=== PATIENT | female | born 1995 | race Caucasian/White ===

== ENCOUNTER 2016-11-09 15:47 | Emergency (ER) | payer BC, MEDICAID ==
[2016-11-09 19:12] VITALS: BP 144/77
--- NOTE | 2016-11-09 19:15 | UC ---
Throat Pain/Nasal Dago HPI - HPI Summary HPI Summary: SWOLLEN TONSILS SINCE YESTERDAY, SENT BY OB TO HAVE STREP TEST DONE; 32 WEEKS - History of Current Complaint Chief Complaint: UCRespiratory Stated Complaint: SORE THROAT Time Seen by Provider: 11/09/16 18:57 Hx Obtained From: Patient Hx Last Menstrual Period: Onset/Duration: Gradual Onset, Lasting Hours, Still Present Severity: Moderate Pain Intensity: 7 Pain Scale Used: 0-10 Numeric Associated Signs & Symptoms: Positive: Hoarseness - Epiglottits Risk Factors Epiglottis Risk Factors: Negative - Allergies/Home Medications Allergies/Adverse Reactions: Allergies Allergy/AdvReac Type Severity Reaction Status Date / Time Latex Allergy Rash Verified 06/08/16 20:31 Home Medications: Home Medications Vit W/ Docusate-Fe Fu [ 19] 11/09/16 [History] PMH/Surg Hx/FS Hx/Imm Hx Previously Healthy: Yes Endocrine History Of: Denies: Diabetes, Thyroid Disease Cardiovascular History Of: Denies: Cardiac Disorders, Hypertension Respiratory History Of: Denies: COPD, Asthma GI/ History Of: Denies: Ulcer - Surgical History Surgical History: Yes Surgery Procedure, Year, and Place: rt knee surgery 2011 - Family History Known Family History: Positive: Other - Negative for stomach disease Negative: Respiratory Disease - Social History Occupation: Employed Full-time Lives: With Family Alcohol Use: None Substance Use Type: None Smoking Status (MU): Never Smoked Tobacco Review of Systems Constitutional: Fatigue Skin: Negative Eyes: Negative ENT: Sore Throat Respiratory: Negative Cardiovascular: Negative Gastrointestinal: Negative Genitourinary: Negative Motor: Negative Neurovascular: Negative Musculoskeletal: Negative Neurological: Negative Psychological: Negative All Other Systems Reviewed And Are Negative: Yes Physical Exam Triage Information Reviewed: Yes Appearance: Well-Appearing, No Pain Distress, Well-Nourished Vital Signs: Initial Vital Signs Temp 98.4 F 11/09/16 17:07 Pulse 97 11/09/16 17:07 Resp 16 11/09/16 17:07 BP 121/71 11/09/16 17:07 Pulse Ox 98 11/09/16 17:07 Vital Signs Reviewed: Yes Eye Exam: Normal ENT: Positive: TMs normal, Tonsillar swelling Dental Exam: Normal Neck exam: Normal Neck: Positive: Supple, Nontender, No Lymphadenopathy Respiratory Exam: Normal Respiratory: Positive: Chest non-tender, Lungs clear, Normal breath sounds, No respiratory distress, No accessory muscle use Cardiovascular Exam: Normal Cardiovascular: Positive: RRR, No Murmur, Pulses Normal Abdominal Exam: Normal Musculoskeletal Exam: Normal Musculoskeletal: Positive: Strength Intact, ROM Intact Neurological Exam: Normal Psychological Exam: Normal Psychological: Positive: Normal Response To Family Skin Exam: Normal Throat Pain/Nasal Course/Dx - Differential Dx/Diagnosis Differential Diagnosis/HQI/PQRI: Otitis Media, Sinusitis, Tonsillitis, URI Provider Diagnoses: TONSILLITIS. THIRD TRIMESTER Discharge - Discharge Plan Condition: Stable Disposition: HOME Patient Education Materials: Tonsillitis (ED) Referrals: Sher Duffy MD [Primary Care Provider] -
== END 2016-11-09 19:05 | disposition home or self-care (01) ==
LOC: UCEAST 15:47
DX: O26.893 Other specified pregnancy related conditions, third trimester (principal); J03.90 Acute tonsillitis, unspecified; Z3A.32 32 weeks gestation of pregnancy; R03.0 Elevated blood-pressure reading, without diagnosis of hypertension
CPT/HCPCS: 87651; 99212; G0463

== ENCOUNTER 2016-11-22 03:57 | Inpatient (IN) | payer BC, MEDICAID ==
[2016-11-22 04:46] LABS: ROM Internal QC QC Line Present
[2016-11-22 06:24] LABS: Hematocrit 32 % (35-47); Mean Corpuscular HGB Conc 34 g/dl (31-36); Mean Corpuscular Hemoglobin 29 pg (27-31); Mean Corpuscular Volume 83 fL (80-97); Mean Platelet Volume 10 um3 (7.4-10.4); Red Blood Count 3.85 10^6/ul (4.0-5.4); Red Cell Distribution Width 14 % (10.5-15); White Blood Count 9.3 10^3/ul (3.5-10.8)
[2016-11-22 06:37] LABS: Uric Acid 10.2 mg/dL (2.3-6.6)
[2016-11-22 07:03] LABS: Albumin 2.8 g/dL (3.2-5.2); BUN/Creatinine Ratio 13.3 (8-20); Calcium 8.5 mg/dL (8.6-10.3); EGFR African American 110.6 (>60); Globulin 3.1 g/dL (2-4); Total Bilirubin 0.3 mg/dL (0.2-1.0); Total Protein 5.9 g/dL (6.4-8.9)
[2016-11-22] MEDS ORDERED: fentaNYL* 50 MCG/ML 2 ML VIAL (100 MCG VIAL) ONE (08:56)
[2016-11-22] MEDS ORDERED: Famotidine TAB* 20 MG PO PRN (09:28)
[2016-11-22] MEDS ORDERED: Phenylephrine IV* 40 MCG/ML 10 ML SYRINGE IV PUSH PRN (09:28)
[2016-11-22] MEDS ORDERED: Sodium Citrate/Citric Acid* 15 ML UDC PO PRN (09:28)
[2016-11-22] MEDS ORDERED: Oxytocin in LR* 20 UNITS/1,000 ML BAG IVPB ONE (09:58)
[2016-11-22] MEDS ORDERED: OBEPIDURAL* 250 ML EPIDURAL SCH (10:00)
[2016-11-22] MEDS ORDERED: Glycerin ADULT SUPP PR PRN (11:07)
[2016-11-22] MEDS ORDERED: Witch Hazel PAD* JAR TOPICAL PRN (11:07)
[2016-11-22] MEDS ORDERED: Dibucaine 1% 28.35 GM TUBE PR PRN (11:07)
[2016-11-22] MEDS ORDERED: Acetaminophen TAB* 325 MG PO PRN (11:07)
[2016-11-22] MEDS ORDERED: oxyCODONE/Acetamin 5/325 MG* TAB PO PRN (11:07)
[2016-11-22] MEDS ORDERED: Oxytocin in LR* 20 UNITS/1,000 ML BAG IVPB SCH (12:00)
[2016-11-22] MEDS: Docusate CAP* 100 MG PO SCH ×2 (13:49→20:51)
[2016-11-22] MEDS: Ibuprofen TAB* 600 MG PO PRN (17:52)
[2016-11-23 06:29] LABS: Hematocrit 27 % (35-47); Hemoglobin 9.2 g/dl (12.0-16.0); Mean Corpuscular HGB Conc 34 g/dl (31-36); Mean Corpuscular Hemoglobin 28 pg (27-31); Mean Corpuscular Volume 84 fL (80-97); Mean Platelet Volume 9 um3 (7.4-10.4); Red Blood Count 3.26 10^6/ul (4.0-5.4); Red Cell Distribution Width 14 % (10.5-15); White Blood Count 9.4 10^3/ul (3.5-10.8)
[2016-11-23] MEDS: Docusate CAP* 100 MG PO SCH ×3 (07:52→20:31)
[2016-11-23] MEDS: Ferrous Gluconate TAB* 324 MG TAB PO SCH ×2 (07:52→20:31)
[2016-11-23] MEDS: Ibuprofen TAB* 600 MG PO PRN ×3 (07:52→20:31)
[2016-11-23] MEDS ORDERED: RHO D Immune Globulin (HUMAN)* 300 MCG = 1,500 I.U. INJ IM ONE (09:00)
[2016-11-24] MEDS: Simethicone CHEW TAB* 80 MG PO SCH (06:23)
--- NOTE | 2016-11-24 08:07 | PTEDU ---
Patient Name: INDIGO GALEAS INDIGO GALEAS selected video: Never Ever Shake a Baby to view on 11/24/2016 at 8:06:30 AM from [id number]
--- NOTE | 2016-11-24 08:20 | PTEDU ---
Patient Name: INDIGO GALEAS INDIGO GALEAS selected video: BBOB: Nurturing Your Gorgeous \T\Growing Baby by to v iew on 11/24/2016 at 8:19:36 AM from [id number]
[2016-11-24 08:24] VITALS: BP 146/97
[2016-11-24] MEDS: Docusate CAP* 100 MG PO SCH (08:39)
[2016-11-24] MEDS: Ferrous Gluconate TAB* 324 MG TAB PO SCH (08:39)
[2016-11-24] MEDS: Ibuprofen TAB* 600 MG PO PRN (08:39)
== END 2016-11-24 12:09 | disposition home or self-care (01) | DRG 560 ==
LOC: MCHOBOUT 03:57 → MCHOB 05:18
PROVIDERS: ADMIT Nurse Practitioner; ATTEND Midwife
PROC: 10E0XZZ Delivery of Products of Conception, External Approach (ICD-10-PCS; principal; 2016-11-22)
PROC: 0HQ9XZZ Repair Perineum Skin, External Approach (ICD-10-PCS; 2016-11-22)
DX: O14.04 Mild to moderate pre-eclampsia, complicating childbirth (principal); O71.4 Obstetric high vaginal laceration alone; O99.824 Streptococcus B carrier state complicating childbirth; Z3A.37 37 weeks gestation of pregnancy; Z37.0 Single live birth; Z91.040 Latex allergy status
CPT/HCPCS: 36415; 80053; 81002; 84112; 84550; 85025; 85461; 86850; 86900; 86901; A9270-GY; J2790; J3010

== ENCOUNTER 2017-10-14 22:33 | Emergency (ER) | payer BC ==
[2017-10-14] MEDS ORDERED: NS 0.9% 1000 ML* 1,000 ML IV ONE (23:14)
[2017-10-14] MEDS ORDERED: Ondansetron INJ* 2 MG/ML VIAL IV ONE (23:14)
[2017-10-14 23:33] LABS: ABS Basophils 0 10^3/ul (0-0.2); ABS Eosinophils 0 10^3/ul (0-0.6); ABS Lymphocytes 0.4 10^3/ul (1.0-4.8); ABS Monocytes 0.3 10^3/ul (0-0.8); ABS Neutrophils 9.5 10^3/ul (1.5-7.7); ABS Nucleated RBC 0 10^3/ul; Eosinophil % 0 % (0-6); Hematocrit 42 % (35-47); Hemoglobin 14.6 g/dl (12.0-16.0); Lymphocyte % 3.4 % (25-47); Mean Corpuscular HGB Conc 35 g/dl (31-36); Mean Corpuscular Hemoglobin 29 pg (27-31); Mean Corpuscular Volume 84 fL (80-97); Mean Platelet Volume 7 um3 (7.4-10.4); Nucleated Red Blood Cells % 0; Platelet Count 188 10^3/ul (150-450); Red Blood Count 5.05 10^6/ul (4.0-5.4); Red Cell Distribution Width 13 % (10.5-15); White Blood Count 10.2 10^3/ul (3.5-10.8)
[2017-10-14 23:48] LABS: EGFR Non-African American 80.7 (>60)
--- NOTE | 2017-10-15 00:33 | ED ---
Nausea/Vomiting/Diarrhea HPI - HPI Summary HPI Summary: 22 female presents to ED with complaints of nausea, vomiting and diarrhea over the past 12 hours.States she has not been able to keep anything down. Admits to diffuse abdominal pain intermittently. States she ate taco [employer] earlier prior to symptoms beginning. No other known sick contacts. Denies blood in stool/ vomit. Has not taken any medication. Denies concern. No urinary or genitalia symptoms. No fever/chills. No PMHx. - History of Current Complaint Chief Complaint: EDNauseaVomitDiarrh Stated Complaint: VOMITING Time Seen by Provider: 10/14/17 22:55 Hx Obtained From: Patient Onset/Duration: Sudden Onset, Lasting Hours, Still Present Severity Initially: Mild - "sometimes" Severity Currently: None Pain Intensity: 0 Pain Scale Used: 0-10 Numeric Location: Diffuse Character: Cramping Aggravating Factor(s): Nothing Alleviating Factor(s): Nothing Nausea/Vomiting Presence: Nauseated, Vomiting Vomiting Frequency: Every 15-60 minutes Nausea/Vomiting Duration: 0-12 hours Vomiting Characteristics: Bilious Diarrhea Presence: Yes Diarrhea Frequency: Every 15-60 minutes Diarrhea Duration: 0-12 hours Diarrhea Characteristics: Watery - Allergies/Home Medications Allergies/Adverse Reactions: Allergies Allergy/AdvReac Type Severity Reaction Status Date / Time MS Latex [Latex] Allergy Rash Verified 06/08/16 20:31 PMH/Surg Hx/FS Hx/Imm Hx Endocrine/Hematology History: Denies: Hx Diabetes, Hx Thyroid Disease Cardiovascular History: Denies: Hx Hypertension Respiratory History: Denies: Hx Asthma, Hx Chronic Obstructive Pulmonary Disease (COPD) GI History: Denies: Hx Ulcer Psychiatric History: Reports: Hx Anxiety - on effexor - Surgical History Surgery Procedure, Year, and Place: rt knee surgery 2011 - Immunization History Date of Tetanus Vaccine: UP TO DATE Date of Influenza Vaccine: NONE Immunizations Up to Date: Yes Infectious Disease History: No Infectious Disease History: Denies: Hx Clostridium Difficile, Hx Hepatitis, Hx Human Immunodeficiency Virus (HIV), Traveled Outside the [place] in Last 30 Days - Family History Known Family History: Positive: Other - Negative for stomach disease Negative: Respiratory Disease - Social History Alcohol Use: None Substance Use Type: Reports: None Smoking Status (MU): Never Smoked Tobacco Have You Smoked in the Last Year: No Review of Systems Constitutional: Negative Cardiovascular: Negative Respiratory: Negative Positive: Abdominal Pain - resolved was "intermittent/diffuse", Vomiting, Diarrhea, Nausea Genitourinary: Negative All Other Systems Reviewed And Are Negative: Yes Physical Exam Triage Information Reviewed: Yes Vital Signs On Initial Exam: Initial Vitals Temp Pulse Resp BP Pulse Ox 96.2 F 102 18 144/88 98 10/14/17 22:34 10/14/17 22:34 02 22:34 10/14/17 22:34 10/14/17 22:34 Vital Signs Reviewed: Yes Appearance: Positive: No Pain Distress, Well-Nourished, Ill-Appearing - appears nauseous, holding bag Skin: Positive: Warm, Skin Color Reflects Adequate Perfusion, Dry. Negative: Cold, Cyanosis @, Diaphoretic, Jaundiced, Pale, Erythema @ Head/Face: Positive: Normal Head/Face Inspection Eyes: Positive: Conjunctiva Clear ENT: Positive: Hearing grossly normal, Pharynx normal, TMs normal, Uvula midline - patent airway Neck: Positive: Supple, Nontender, No Lymphadenopathy Respiratory/Lung Sounds: Positive: Clear to Auscultation, Breath Sounds Present. Negative: Rales, Rhonchi, Wheezes Cardiovascular: Positive: Normal, RRR, Pulses are Symmetrical in both Upper and Lower Extremities. Negative: Murmur, Rub Abdomen Description: Positive: Nontender, No Organomegaly, Soft. Negative: Bruit, CVA Tenderness (R), CVA Tenderness (L), Distended, Guarding, McBurney's Point Tenderness Bowel Sounds: Positive: Present, Hyperactive Musculoskeletal: Positive: Normal, Strength/ROM Intact Neurological: Positive: Normal, Sensory/Motor Intact, Alert, Oriented to Person Place, Time Diagnostics - Vital Signs Vital Signs Temp Pulse Resp BP Pulse Ox 10/15/17 00:01 86 107/76 95 10/15/17 00:00 82 93 10/14/17 23:58 107 97 10/14/17 23:57 111/67 10/14/17 22:34 96.2 F 102 18 144/88 98 - Laboratory Lab Results: Lab Results 10/14/17 10/14/17 10/14/17 Range/Units 23:20 23:20 23:20 WBC 10.2 (3.5-10.8) 10^3/ul RBC 5.05 (4.0-5.4) 10^6/ul Hgb 14.6 (12.0-16.0) g/dl Hct 42 (35-47) % MCV 84 (80-97) fL MCH 29 (27-31) pg MCHC 35 (31-36) g/dl RDW 13 (10.5-15) % Plt Count 188 (150-450) 10^3/ul MPV 7 L (7.4-10.4) um3 Neut % (Auto) 93.1 H (38-83) % Lymph % (Auto) 3.4 L (25-47) % Fannin % (Auto) 3.3 (1-9) % Eos % (Auto) 0 (0-6) % Baso % (Auto) 0.2 (0-2) % Absolute Neuts (auto) 9.5 H (1.5-7.7) 10^3/ul Absolute Lymphs (auto) 0.4 L (1.0-4.8) 10^3/ul Absolute Monos (auto) 0.3 (0-0.8) 10^3/ul Absolute Eos (auto) 0 (0-0.6) 10^3/ul Absolute Basos (auto) 0 (0-0.2) 10^3/ul Absolute Nucleated RBC 0 10^3/ul Nucleated RBC % 0 Sodium 135 (133-145) mmol/L Potassium 4.2 (3.5-5.0) mmol/L Chloride 101 (101-111) mmol/L Carbon Dioxide 25 (22-32) mmol/L Anion Gap 9 (2-11) mmol/L BUN 14 (6-24) mg/dL Creatinine 0.87 (0.51-0.95) mg/dL Est GFR ( Amer) 103.8 (>60) Est GFR (Non-Af Amer) 80.7 (>60) BUN/Creatinine Ratio 16.1 (8-20) Glucose 119 H (70-100) mg/dL Lactic Acid 1.6 (0.5-2.0) mmol/L Calcium 9.7 (8.6-10.3) mg/dL Magnesium 1.6 L (1.9-2.7) mg/dL Total Bilirubin 0.50 (0.2-1.0) mg/dL AST 17 (13-39) U/L ALT 19 (7-52) U/L Alkaline Phosphatase 89 (34-104) U/L C-Reactive Protein 17.97 H (< 5.00) mg/L Total Protein 8.0 (6.4-8.9) g/dL Albumin 4.4 (3.2-5.2) g/dL Globulin 3.6 (2-4) g/dL Albumin/Globulin Ratio 1.2 (1-3) Lipase 13 (11.0-82.0) U/L Beta HCG, Quant < 0.60 mIU/mL Result Diagrams: 10/14/17 23:20 10/14/17 23:20 Lab Statement: Any lab studies that have been ordered have been reviewed, and results considered in the medical decision making process. Re-Evaluation - Re-Evaluation First Eval Re-Evaluation Time: 01:00 Change: Improved - feeling better, still has fluids, updated on labs and plan Second Eval Re-Evaluation Time: 01:35 Change: Improved - feeling better and ready to be dc Naus/Vom/Diarrhea Course/Dx - Course Course Of Treatment: appears to be suffering from gastroenteritis/food poisoning. labs obtained and normal. normal urinalysis. negative hcg. nslight elevation of CRP. no other concerns at this time. had relief after labs and zofran. will continue at home. increse fluids, rest, and bladn diet BRAT. probiotics. avoid take out food/left overs. aware of worsening signs and symptoms to watch out for, return if occur. follow up. - Differential Dx/Diagnosis Differential Diagnoses - Female: Other - nausea, vomiting, diarrhea, gastroenteritis, viral illness Provider Diagnoses: n/v/d, gastroenteritis, food poisoning Condition At Discharge: Stable Discharge - Discharge Plan Condition: Stable Disposition: HOME Prescriptions: Ondansetron ODT TAB* [Zofran 4 MG Odt TAB*] 4 mg PO Q6H PRN #10 tab.odt PRN Reason: Nausea Patient Education Materials: Gastroenteritis (ED), Acute Nausea and Vomiting ( ED) Referrals: Sher Duffy MD [Primary Care Provider] - Additional Instructions: Take prescribed medication as directed for nausea. Increase fluid intake and get plenty of rest. Avoid take out food, and left overs. Recommend taking probiotics and/or eating stateless yogurt. Once able, stick to a bland diet including Bananas, Rice, Applesauce and [place]. Follow up with PCP. Any new or worsening symptoms please seek medical attention.
[2017-10-15] MEDS ORDERED: Acetaminophen TAB* 325 MG PO ONE (00:37)
[2017-10-15] MEDS ORDERED: Ondansetron ODT TAB* 4 MG PO ONE (02:02)
[2017-10-15 02:24] VITALS: BP 114/69
[2017-10-15 02:49] LABS: Urine Appearance Clear; Urine Blood Negative (Negative); Urine Color Yellow; Urine Ketones Trace (Negative); Urine Protein Negative (Negative); Urine Specific Gravity 1.025 (1.010-1.030); Urine Urobilinogen Negative (Negative)
== END 2017-10-15 02:22 | disposition home or self-care (01) ==
LOC: ED 22:33
DX: K52.9 Noninfective gastroenteritis and colitis, unspecified (principal); T62.91XA Toxic effect of unspecified noxious substance eaten as food, accidental (unintentional), initial encounter; Y92.9 Unspecified place or not applicable; R11.2 Nausea with vomiting, unspecified; Z32.02 Encounter for pregnancy test, result negative; F41.9 Anxiety disorder, unspecified; Z91.040 Latex allergy status
CPT/HCPCS: 36415; 80053; 81003; 83605; 83690; 83735; 84702; 85025; 86140; 96374; 99283; A9270-GY; J2405